=== PATIENT | male | born 1965 | race African-American/Black ===

== ENCOUNTER 2016-03-13 18:04 | Emergency (ER) | payer OTHER, BC ==
[2016-03-13 18:14] VITALS: BP 143/96; PULSE 69; RESP 18; TEMP 96.9
[2016-03-13] MEDS ORDERED: ACETAMINOPHEN/HYDROcodone 325 MG/5 MG TAB PO ONE (18:45)
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
[2016-03-13] MEDS ORDERED: DICL75TA PO (20:48)
[2016-03-13] MEDS ORDERED: ROBA750T PO (20:48)
[2016-03-13 20:54] VITALS: BP 140/88; PULSE 89; RESP 18; O2SAT 98
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
[2016-03-13 21:25] VITALS: RESP 18
== END 2016-03-13 21:43 | disposition home or self-care (01) ==
LOC: NEDAMB 18:04 → NEPA 21:43
DX: S13.4XXA Sprain of ligaments of cervical spine, initial encounter (principal); I10 Essential (primary) hypertension; Z21 Asymptomatic human immunodeficiency virus [HIV] infection status; V43.52XA Car driver injured in collision with other type car in traffic accident, initial encounter; Y92.410 Unspecified street and highway as the place of occurrence of the external cause
CPT/HCPCS: 70450; 72125; 72131